=== PATIENT | male | born 1965 | race Caucasian/White ===

== ENCOUNTER 2020-09-26 06:00 | Outpatient (RCR) | payer OTHER, SELFPAY | END 2020-10-05 23:59 | disposition home or self-care (01) | LOC: SPT 06:00 | PROVIDERS: Family Provider Electrodiagnostic Medicine; Referring Provider Neurological Surgery; Visit Provider Neurological Surgery | DX: M48.062 Spinal stenosis, lumbar region with neurogenic claudication (principal) | CPT/HCPCS: 97110; 97162 ==

== ENCOUNTER 2020-10-06 06:00 | Outpatient (RCR) | payer OTHER, SELFPAY | END 2020-11-05 23:59 | disposition home or self-care (01) | LOC: SPT 06:00 | PROVIDERS: Family Provider Electrodiagnostic Medicine; Referring Provider Neurological Surgery; Visit Provider Neurological Surgery | DX: M48.062 Spinal stenosis, lumbar region with neurogenic claudication (principal) | CPT/HCPCS: 97110 ==

== ENCOUNTER 2020-11-06 06:00 | Outpatient (RCR) | payer OTHER, SELFPAY | END 2020-12-03 23:59 | disposition home or self-care (01) | LOC: SPT 06:00 | PROVIDERS: Family Provider Electrodiagnostic Medicine; Referring Provider Neurological Surgery; Visit Provider Neurological Surgery | DX: M48.062 Spinal stenosis, lumbar region with neurogenic claudication (principal) | CPT/HCPCS: 97110 ==

== ENCOUNTER 2023-03-11 20:40 | Emergency (ER) | payer OTHER, SELFPAY ==
[2023-03-11 20:44] VITALS: BP 165/89; PULSE 87; RESP 18; TEMP 36.6; O2SAT 97; BMI 29.5
--- NOTE | 2023-03-11 21:09 | XRR_ITS ---
PROCEDURE INFORMATION: Exam: XR Chest Exam date and time: 03/11/2023 9:31 PM Age: 57 years old Clinical indication: Other: Weakness TECHNIQUE: Imaging protocol: Radiologic exam of the chest. Views: 1 view. COMPARISON: No relevant prior studies available. FINDINGS: Lungs: Right peripheral upper lateral lung zone opacity which may be seen with pneumonia in the appropriate clinical context or possible artifact. Pleural spaces: Unremarkable. No pleural effusion. No pneumothorax. Heart/Mediastinum: No cardiomegaly. Bones/joints: No acute fracture. XR/XR chest 1V portable [id number] IMPRESSION: Right peripheral upper lateral lung zone opacity which may be seen with pneumonia in the appropriate clinical context or possible artifact.
--- NOTE | 2023-03-11 21:10 | ECG_ITS ---
[facility] Test Date: 2023-03-11 Pat Name: Eimly Lopez Department: Room: Gender: Male [employer] Handler: : 1965 Requested By: Clinton Garcia Order Number: [id number] Myles MD: Samuel Mack M.D. Measurements Intervals [place] Rate: 77 P: 56 TX: 156 QRS: -34 QRSD: 101 T: 39 QT: 373 QTc: 423 Interpretive Statements SINUS RHYTHM LEFT AXIS DEVIATION [QRS AXIS < -30] No previous ECG available for comparison Electronically Signed On 03-12-2023 2:53:50 CDT by Samuel Mack M.D. [id number]
--- NOTE | 2023-03-11 21:11 | W.ED.WEAKNES ---
HPI - Weakness General: Chief complaint: Weakness Stated complaint: general weakness, Time Seen by Provider: 03/11/23 21:03 History of Present Illness: Patient presents to the ER with complaints of feeling very weak fatigued and dizzy for the last 3 to 4 days. Patient has been working outside pouring concrete and has not felt good for the last 3 to 4 days. He even did not go to work the last 2 days and stayed home and rested and this did not make much of a difference. Patient says he has been hydrating and having good urine output. MD Complaint: generalized weakness Onset (ago): day(s) (3 to 4 days ago) Duration: constant Location: generalized Migration: none Severity: mild Relieving factors: none Exacerbating factors: none Associated symptoms: Reports no associated symptoms Review of Systems General: Reports: 10 or more systems reviewed and unremarkable except in HPI and below Physical Exam Const: COMMON NORMALS: no acute distress, average body habitus, patient oriented x3, no limitations, healthy appearing, alert and well nourished HENMT: COMMON NORMALS: normocephalic, atraumatic, hearing grossly normal bilaterally, external ears normal, Normal external nose present and moist oral mucous membranes HEAD & SCALP: normocephalic and atraumatic NOSE: Normal external nose present EXTERNAL EAR: Yes external ears normal Eye: COMMON NORMALS: Equal, round and reactive pupils present, EOMs intact bilaterally, conjunctivae normal and no scleral icterus CONJUNCTIVA: Yes conjunctivae normal PUPIL: Yes Equal, round and reactive pupils present Neck/C-Spine: COMMON NORMALS: full ROM, no lymphadenopathy, supple, no meningeal signs, no JVD and Thyroid normal THYROID: Thyroid normal Lymph: LYMPHATIC: no lymphadenopathy noted Chest: COMMONS NORMALS: normal inspection of the chest and normal palpation of entire chest wall Resp: COMMON NORMALS: normal respiratory effort, No retractions, No use of accessory muscles and clear to auscultation bilaterally AUSCULTATION: clear to auscultation bilaterally Cardio: COMMON NORMALS: no JVD, regular rate, regular rhythm, S1 normal heart sound present, S2 normal heart sound present, No gallops present (Cardio), No clicks present (Cardio), No murmurs present (Cardio) and No rub (Cardio) RATE: regular rate RHYTHM: regular rhythm HEART SOUNDS: S1 normal heart sound present and S2 normal heart sound present GI: COMMON NORMALS: Normal to inspection, nondistended, normoactive bowel sounds present, Soft to palpation, non-tender, No hepatosplenomegaly present and no masses PALPATION: Yes Soft to palpation and Yes No hepatosplenomegaly present : COMMON NORMALS: Yes no CVA tenderness BLADDER/KIDNEY EXAM: Yes no CVA tenderness Back/Pelvis: COMMON NORMALS: no CVA tenderness Neuro: COMMON NORMALS: patient oriented x3 SENSORIUM/ORIENTATION: Yes alert MENINGEAL SIGNS: Yes no meningeal signs Course Vital Signs: Vital signs: Vital Signs Temperature 97.9 F 03/11/23 20:44 Pulse Rate 87 03/11/23 23:23 Respiratory Rate 18 03/11/23 23:23 Blood Pressure 157/93 03/11/23 23:23 Pulse Oximetry 94 03/11/23 23:23 MDM - Weakness Medical Decision Making Patient presents to the ER with complaints of 2 to 3-day history of weakness. Patient also complains of head pressure and sinus drainage. Patient does have extensive history of sinusitis with multiple surgeries. Lab work was obtained CBC CMP troponin CK magnesium and UA were all obtained which was benign. Chest x-ray showed right peripheral upper lateral lung opacity which may represent pneumonia. Patient was given 1 L fluid normal saline which did not improve patient's symptoms. These results was the discussed with the patient along with his sinusitis like symptoms and is thought patient will benefit from a round of antibiotics. Patient will be treated with Augmentin 875 for sinusitis/pneumonia and should follow-up with his PCP in approximately 10 to 14 days or as needed. Differential Diagnosis Likely dehydration; Unlikely acute myocardial infarction, anemia, hypoglycemia, hypothyroidism, rhabdomyolysis or sepsis Medical Records I reviewed the patient's medical records. Lab Data I reviewed the patient's lab results. 03/11/23 21:23 03/11/23 21:23 Radiology Impressions Chest X-Ray 03/11/23 21:09 IMPRESSION: Right peripheral upper lateral lung zone opacity which may be seen with pneumonia in the appropriate clinical context or possible artifact. Laboratory Results WBC 7.7 10^3/uL (4.0-10.0) 03/11/23 21:23 RBC 4.79 10^6/uL (4.1-5.3) 03/11/23 21:23 Hgb 14.3 g/dL (11.7-16.6) 03/11/23 21:23 Hct 43.4 % (42.0-52.0) 03/11/23 21: MCV 90.6 fl (80-94) 03/11/23 21:23 MCH 29.9 pg (28.0-34.0) 03/11/23 21: MCHC 32.9 g/dL (30.0-36.0) 03/11/23 21: RDW 12.4 % (12.1-15.1) 03/11/23 21: Plt Count 256 10^3/cmm (130-400) 03/11/23 21: MPV 9.9 fL (7.4-10.4) 03/11/23 21: Neut % (Auto) 52.8 % 03/11/23 21: Lymph % (Auto) 33.1 % 03/11/23 21: [place] % (Auto) 9.2 % 03/11/23 21: Eos % (Auto) 3.8 % 03/11/23 21: Baso % (Auto) 0.5 % 03/11/23 21: Neut # (Auto) 4.06 10^3/uL (1.8-7.7) 03/11/23 21: Lymph # (Auto) 2.6 10^3/uL (0.8-4.8) 03/11/23 21: [place] # (Auto) 0.7 10^3/uL (0.2-0.9) 03/11/23 21:23 Eos # (Auto) 0.3 10^3/uL (0.0-0.8) 03/11/23 21:23 Baso # (Auto) 0.0 10^3/uL (0.0-0.1) 03/11/23: Nucleated RBC % (auto) 0 % 03/11/23: Nucleated RBCs # 0.0 /100WBC 03/11/23 21: Sodium 139 mmol/L (136-145) 03/11/23 21:23 Potassium 4.1 mmol/L (3.5-5.1) 03/11/23 21: Chloride 103 mmol/L (98-107) 03/11/23 21:23 Carbon Dioxide 25 mmol/L (22-29) 03/11/23 21: Anion Gap 15.1 (5-19) 03/11/23 21: BUN 10 mg/dL (6-20) 03/11/23 21: Creatinine 0.9 mg/dL (0.7-1.2) 03/11/23 21: GFR Calculation 87.3 mL/min (90-130) L 03/11/23 21: Glucose 94 mg/dL (65-115) 03/11/23 21: Calculated Osmolality 287 mOsm/kg (285-295) 03/11/23 21: Calcium 9.4 mg/dL (8.5-10.5) 03/11/23: Magnesium 2.2 mg/dL (1.7-2.3) 03/11/23: Total Bilirubin 0.2 mg/dL (0.15-1.2) 03/11/23 21: AST 16 U/L (0-40) 03/11/23 21: ALT 27 U/L (0-41) 03/11/23 21: Alkaline Phosphatase 93 U/L (40-130) 03/11/23 21: Creatine Kinase 94 U/L (39-308) 03/11/23 21: Troponin T Gen 5 ng/L 8 ng/L (0-15) 03/11/23 21: Total Protein 7.2 g/dL (6.6-8.7) 03/11/23 21: Albumin 4.3 g/dL (3.5-5.2) 03/11/23 21: Globulin 2.9 g/dL (1.3-4.6) 03/11/23 21: Urine Color Light yellow (Yellow) 03/11/23 21:35 Urine Appearance Clear (CLEAR) 03/11/23 21:35 Urine pH 5 (5-7) 03/11/23 21:35 Ur Specific [place] 1.020 (1.005-1.030) 03/11/23 21:35 Urine Protein Neg (Negative) 03/11/23 21:35 Urine Glucose (UA) Norm (Normal) 03/11/23 21:35 Urine Ketones Negative (Negative) 03/11/23 21:35 Urine Blood Neg (Negative) 03/11/23 21:35 Urine Nitrate Negative (Negative) 03/11/23 21:35 Urine Bilirubin Neg (Negative) 03/11/23 21:35 Urine Urobilinogen Neg mg/dL (Negative) 03/11/23 21:35 Ur Leukocyte Esterase Negative (Negative) 03/11/23 21:35 EKG Data EKG 1: I personally reviewed and interpreted this EKG as follows: EKG interpretation date: 03/11/23 EKG interpretation time: 21:16 Prior EKG tracings: not available for review Interpretation: EKG showed normal sinus rhythm with a ventricular rate of 77 bpm, ID interval 156, QRS duration 101, QTc 405, left axis deviation no ST-T wave changes Discharge Plan Discharge Patient Disposition: Home Clinical Impression: Weakness, Sinusitis chronic, frontal Pneumonia Qualifiers: Pneumonia type: due to unspecified organism Laterality: right Lung location: middle lobe of lung Qualified Code(s): J18.9 - Pneumonia, unspecified organism Condition: Stable Prescriptions: New amoxicillin-pot clavulanate 875-125 mg tablet 1 tab PO Q12H Qty: 20 0RF Discharge Orders: Discharge ED (Routine); Ordered 03/11/23 Ordered By: Clinton Garcia Referrals: Pelon Davies MD [Primary Care Provider] - Patient Instructions: Bacterial Pneumonia (ED), Sinusitis - Acute, Weakness (Generalized) Activity Restrictions/Additional Instructions: Take all antibiotics as directed, continue to rest, follow-up with your family practice physician in the next 10 to 14 days as needed. If your symptoms worsen or progress please feel free to follow back up in the ER as needed. Coding Level of Care Code ED Hospice Rn for Melanie Burrows
[2023-03-11] MEDS: sodium chloride 0.9% 1,000 ML 999 ML IV (21:18)
[2023-03-11 21:29] LABS: Basophils % 0.5 %; Eosinophils # 0.3 10^3/uL (0.0-0.8); Eosinophils % 3.8 %; Hematocrit 43.4 % (42.0-52.0); Hemoglobin 14.3 g/dL (11.7-16.6); Lymphocytes # 2.6 10^3/uL (0.8-4.8); Lymphocytes % 33.1 %; Mean Corpuscular HGB Conc 32.9 g/dL (30.0-36.0); Mean Corpuscular Hemoglobin 29.9 pg (28.0-34.0); Mean Corpuscular Volume 90.6 fl (80-94); Mean Platelet Volume 9.9 fL (7.4-10.4); Monocytes # 0.7 10^3/uL (0.2-0.9); Monocytes % 9.2 %; Neutrophils # 4.06 10^3/uL (1.8-7.7); Neutrophils % 52.8 %; Nucleated Red Blood Cells % 0 %; Platelet Count 256 10^3/cmm (130-400); Red Blood Count 4.79 10^6/uL (4.1-5.3); Red Cell Distribution Width 12.4 % (12.1-15.1); White Blood Count 7.7 10^3/uL (4.0-10.0)
[2023-03-11 21:38] LABS: Add Urine Microscopic? NO; Charge for UA Resulting for Rev
[2023-03-11 21:48] LABS: Bilirubin Urine Neg (Negative); Blood Urine Neg (Negative); Glucose Urine UA Norm (Normal); Ketones Urine Negative (Negative); Leukocyte Esterase Urine Negative (Negative); Nitrate Urine Negative (Negative); Protein Urine Neg (Negative); Urine Appearance Clear (CLEAR); Urine Color Light yellow (Yellow); Urobilinogen Urine Neg (Negative); pH Urine 5 (5-7)
[2023-03-11 21:59] LABS: Alanine Aminotransferase 27 U/L (0-41); Albumin Level 4.3 g/dL (3.5-5.2); Alkaline Phosphatase 93 U/L (40-130); Aspartate Amino Transferase 16 U/L (0-40); Blood Urea Nitrogen 10 mg/dL (6-20); Calcium 9.4 mg/dL (8.5-10.5); Carbon Dioxide 25 mmol/L (22-29); Globulin 2.9 g/dL (1.3-4.6); Glomerular Filtration Rate 87.3 mL/min (90-130); Glucose 94 mg/dL (65-115); Magnesium 2.2 mg/dL (1.7-2.3); Total Bilirubin 0.2 mg/dL (0.15-1.2); Total Protein 7.2 g/dL (6.6-8.7)
[2023-03-11 22:05] LABS: Anion Gap 15.1 (5-19); Chloride 103 mmol/L (98-107); Osmolality Calculated 287 mOsm/kg (285-295); Potassium 4.1 mmol/L (3.5-5.1); Sodium 139 mmol/L (136-145)
[2023-03-11 22:35] LABS: Troponin T (5th) Once 8 ng/L (0-15)
[2023-03-11 22:36] LABS: Creatine Phosphokinase 94 U/L (39-308)
[2023-03-11] MEDS: amoxicillin-clav 875-125 mg Tablet 1 TAB PO (23:21)
[2023-03-11 23:23] VITALS: BP 157/93; PULSE 87; RESP 18; O2SAT 94
== END 2023-03-11 23:28 | disposition home or self-care (01) ==
PROVIDERS: Emergency Provider Emergency Medicine; PCP Internal Medicine
DX: R53.1 Weakness (principal); J32.1 Chronic frontal sinusitis
CPT/HCPCS: 71045; 80053; 81003; 82550; 83735; 84484; 85025; 93005; 96360; 99284; J7030

== ENCOUNTER 2024-03-31 00:50 | Emergency (ER) | payer BC, SELFPAY ==
[2024-03-31 01:18] VITALS: BP 130/89; PULSE 78; RESP 18; TEMP 36.7; O2SAT 96; BMI 29.5
--- NOTE | 2024-03-31 01:35 | CTR_ITS ---
PROCEDURE INFORMATION: Exam: CT Head Without Contrast Exam date and time: 03/31/2024 1:47 AM Age: 58 years old Clinical indication: Injury or trauma; Fall; Additional info: Fall, positive loc, head trauma and lac post sup occiput TECHNIQUE: Imaging protocol: Computed tomography of the head without contrast. Radiation optimization: All CT scans at this facility use at least one of these dose optimization techniques: automated exposure control; mA and/or kV adjustment per patient size (includes targeted exams where dose is matched to clinical indication); or iterative reconstruction. COMPARISON: No relevant prior studies available. RADIATION DOSE METRICS: Total DLP (mGy-cm): 4185.7 FINDINGS: Brain: Jovani cisterna magna which is a normal variant. Cerebral ventricles: No ventriculomegaly. Paranasal sinuses: Severe bilateral ethmoid sinus disease. Mild bilateral frontal sinusitis. Mastoid air cells: Visualized mastoid air cells are well aerated. Bones: Unremarkable. No acute fracture. Soft tissues: Unremarkable. CT/CT head wo con* [id number] IMPRESSION: 1. Severe bilateral ethmoid sinus disease. 2. Mild bilateral frontal sinusitis. 3. No acute intracranial findings.
--- NOTE | 2024-03-31 01:40 | ED_ITS ---
HPI - Head Injury General: Chief complaint: Head Injury Stated complaint: Head Pain Time Seen by Provider: 03/31/24 01:31 History of Present Illness: Patient can appease the bathroom and once he was done he spun around to leave and exiting and no he was picking himself up off the ground. He does not remember falling. Patient hit his head on something and got laceration to the top posterior part of his head. Patient has no hearing, vision changes no nausea vomiting. Patient feels otherwise fine. Patient's only on a baby aspirin and no other anticoagulation. Review of Systems General: Reports: 10 or more systems reviewed and unremarkable except in HPI and below Physical Exam Const: COMMON NORMALS: no acute distress, average body habitus, patient oriented x3, no limitations, healthy appearing, alert and well nourished HENMT: COMMON NORMALS: normocephalic, hearing grossly normal bilaterally, external ears normal, Normal external nose present and moist oral mucous membranes; head/scalp not atraumatic (Laceration posterior superior occipital region) HEAD & SCALP: normocephalic; not atraumatic (Laceration posterior superior occipital region) NOSE: Normal external nose present EXTERNAL EAR: Yes external ears normal Eye: COMMON NORMALS: Equal, round and reactive pupils present, EOMs intact bilaterally, conjunctivae normal and no scleral icterus CONJUNCTIVA: Yes conjunctivae normal PUPIL: Yes Equal, round and reactive pupils present Neck/C-Spine: COMMON NORMALS: full ROM, no lymphadenopathy, supple, no meningeal signs, no JVD and Thyroid normal THYROID: Thyroid normal Chest: COMMONS NORMALS: normal inspection of the chest and normal palpation of entire chest wall Resp: COMMON NORMALS: normal respiratory effort, No retractions, No use of accessory muscles and clear to auscultation bilaterally AUSCULTATION: clear to auscultation bilaterally Cardio: COMMON NORMALS: no JVD, regular rate, regular rhythm, S1 normal heart sound present, S2 normal heart sound present, No gallops present (Cardio), No clicks present (Cardio), No murmurs present (Cardio) and No rub (Cardio) RATE: regular rate RHYTHM: regular rhythm HEART SOUNDS: S1 normal heart sound present and S2 normal heart sound present GI: COMMON NORMALS: Normal to inspection, nondistended, normoactive bowel sounds present, Soft to palpation, non-tender, No hepatosplenomegaly present and no masses PALPATION: Yes Soft to palpation and Yes No hepatosplenomegaly present Neuro: COMMON NORMALS: patient oriented x3 SENSORIUM/ORIENTATION: Yes alert MENINGEAL SIGNS: Yes no meningeal signs Course Vital Signs: Vital signs: Vital Signs Temperature 98.0 F 03/31/24 01:18 Pulse Rate 78 03/31/24 01:18 Respiratory Rate 18 03/31/24 01:18 Blood Pressure 130/89 03/31/24 01:18 Pulse Oximetry 96 03/31/24 01:18 Oxygen Delivery Me thod Room Air 03/31/24 01:18 MDM - Head Injury Medcial Decision Making Wound was cleaned, is more of abrasion type laceration it would not spread. Will be dressed appropriately. Head CT was read off as negative for acute intracranial findings. These results were discussed with the patient patient be discharged home. Differential Diagnosis Likely closed head injury; Unlikely concussion without loss of consciousness, epidural hematoma, subarachnoid hematoma, postconcussion syndrome, subdural hematoma or concussion with loss of consciousness Medical Records I reviewed the patient's medical records. Lab Data I reviewed the patient's lab results. Radiology Impressions Head CT 03/31/24 01:35 IMPRESSION: 1. Severe bilateral ethmoid sinus disease. 2. Mild bilateral frontal sinusitis. 3. No acute intracranial findings. All radiology interpretation(s) finalized by discharge Discharge Plan Discharge Patient Disposition: Home Clinical Impression: Fall, Laceration of head Condition: Stable Prescriptions: No Action amoxicillin-pot clavulanate 875-125 mg tablet 1 tab PO Q12H Qty: 20 0RF Discharge Orders: Discharge ED (Routine); Ordered 03/31/24 Ordered By: Clinton Garcia Referrals: Pelon Davies MD [Primary Care Provider] - 1 week Patient Instructions: Scalp Laceration Activity Restrictions/Additional Instructions: Laceration your scalp is more of an abrasion type laceration, it does not need stitches or pamella. Please keep it clean and dry and will heal up nicely on its own. Your head CT was read by the radiologist as negative for any internal bleeding or fracture. Please follow-up with your family practitioner in the next 7 to 10 days for further evaluation and treatment as needed. Coding Level of Care Code ED Education Teacher for Melanie Burrows
== END 2024-03-31 02:40 | disposition home or self-care (01) ==
PROVIDERS: Emergency Provider Emergency Medicine; PCP Internal Medicine
DX: S01.01XA Laceration without foreign body of scalp, initial encounter (principal); W18.39XA Other fall on same level, initial encounter
CPT/HCPCS: 70450; 99284

== ENCOUNTER 2024-07-11 18:38 | Emergency (ER) | payer BC, SELFPAY ==
[2024-07-11 18:45] VITALS: BP 149/88; PULSE 93; RESP 18; TEMP 36.7; O2SAT 100
--- NOTE | 2024-07-11 18:47 | CTR_ITS ---
PROCEDURE INFORMATION: Exam: CT Abdomen And Pelvis With Contrast Exam date and time: 07/11/2024 7:34 PM Age: 59 years old Clinical indication: Injury or trauma; Fall; Blunt; Abdominal wall; Prior surgery; Surgery date: 6+ months; Surgery type: Appy; Patient HX: Patient tripped and fell backwards against a wood splitter. Patient has large contusion to left lower flank. ; Additional info: Trauma, left hip and flank pain. TECHNIQUE: Imaging protocol: Computed tomography of the abdomen and pelvis with contrast. Radiation optimization: All CT scans at this facility use at least one of these dose optimization techniques: automated exposure control; mA and/or kV adjustment per patient size (includes targeted exams where dose is matched to clinical indication); or iterative reconstruction. Contrast material: OMNI 350; Contrast volume: 100 ml; Contrast route: INTRAVENOUS (IV); COMPARISON: CR (CHEST, ) 03/11/2023 9:31 PM RADIATION DOSE METRICS: Total DLP (mGy-cm): 920.44 FINDINGS: Liver: The liver is enlarged, measuring 20 cm craniocaudal. Gallbladder and biliary ducts: Normal. No calcified stones. No ductal dilation. Pancreas: Fatty atrophy of the body and tail of the pancreas. No ductal dilatation. Spleen: Normal. No splenomegaly. Adrenal glands: Normal. No mass. Kidneys and ureters: Excreted contrast within the renal collecting systems and ureters. 2 cm simple cyst in the lower pole of the left kidney. No hydronephrosis. Stomach and bowel: Unremarkable. No obstruction. No mucosal thickening. Appendix: The appendix appears to be surgically absent. Intraperitoneal space: Unremarkable. No free air. No significant fluid collection. Vasculature: Mild atherosclerotic aortic calcifications. No aortic aneurysm. Lymph nodes: Unremarkable. No enlarged lymph nodes. Urinary bladder: Unremarkable as visualized. Reproductive: Unremarkable as visualized. Bones/joints: Moderate degenerative disc disease at L4-L5 and L5-S1. Soft tissues: Hematoma in the left posterior subcutaneous soft tissues measuring approximately 6.6 x 4.5 x 7.9 cm with surrounding soft tissue contusion. No definite evidence of active bleeding, though assessment is limited on this single phase of contrast. CT/CT abdomen pelvis w con* [id number] IMPRESSION: 1. Left posterior subcutaneous soft tissue hematoma with surrounding contusion. 2. No definite acute osseous findings in the abdomen/pelvis. 3. No evidence of acute traumatic injury to the abdominal viscera. COMMENTS: Consistent with the [employer] [employer]'s Incidental Findings Committee white paper (J Am Seth Radiol 2018): Any incidental renal lesion less than 1 cm or classified as too small to characterize, or any incidental cystic renal lesion characterized as simple-appearing, is likely benign. No follow-up imaging is recommended for these lesions per consensus recommendations based on imaging criteria.
--- NOTE | 2024-07-11 18:55 | ED_ITS ---
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 He continued to work for about 4 hours and by the time he got home the pain was so bad he can barely walk. He had a near syncopal episode. He did hit his head when he fell and had a small abrasion but no loss of consciousness. No blood thinners. No nausea or vomiting. No altered mental status. No chest pain. He has a large contusion/bruise over his left upper hip area posteriorly. Related Data Previous Rx's Medication Instructions Recorded amoxicillin 875 mg-potassium 1 tab PO Q12H #20 tabs 03/11/23 clavulanate 125 mg tablet Allergies Allergy/AdvReac Type Severity Reaction Status Date / Time No Known Allergies Allergy Verified 03/31/24 01:21 Review of Systems 2 Narrative: Constitutional symptoms: Negative except as documented in HPI. Skin symptoms: Negative except as documented in HPI. Eye symptoms: Negative except as documented in HPI. ENMT symptoms: Negative except as documented in HPI. Respiratory symptoms: Negative except as documented in HPI. Cardiovascular symptoms: Negative except as documented in HPI. Gastrointestinal symptoms: Negative except as documented in HPI. Genitourinary symptoms: Negative except as documented in HPI. Musculoskeletal symptoms: Negative except as documented in HPI. Neurologic symptoms: Negative except as documented in HPI. Psychiatric symptoms: Negative except as documented in HPI. Endocrine symptoms: Negative except as documented in HPI. Physical Exam 2 Narrative: EXAM NARRATIVE: General: Alert, no acute distress. Skin: Warm, dry. Head: Normocephalic, atraumatic. Neck: Supple, trachea midline. Eye: Extraocular movements are intact. Ears, nose, mouth and throat: mucosa moist. Cardiovascular: Regular, Normal peripheral perfusion. Respiratory: Lungs are clear to auscultation, respirations are non-labored, breath sounds are equal, Symmetrical chest wall expansion. Gastrointestinal: Soft, Nontender, Non distended Musculoskeletal: Normal ROM, no deformity. There is a large tender hematoma over the left upper posterior hip area. Neurological: Alert and oriented, No focal neurological deficit observed. Psychiatric: Cooperative, appropriate mood & affect. Course 2 Vital Signs: Vital signs: Vital Signs Temperature 98.1 F 07/11/24 18:45 Pulse Rate 74 07/11/24 20:59 Respiratory Rate 16 07/11/24 20:59 Blood Pressure 141/87 07/11/24 20:59 Pulse Oximetry 98 07/11/24 20:59 Oxygen Delivery Me thod Room Air 07/11/24 20:59 MDM - Back Pain/Injury Medical Decision Making CT of the abdomen pelvis: There is a large hematoma over the left upper pelvic area. No obvious bony deformities. This was reviewed and interpreted by myself the emergency room physician. I also reviewed the radiology report. Lab review: I reviewed and interpreted lab work personally. Mild leukocytosis. No anemia. BUN and creatinine are 22 and 1.1. Glucose is slightly elevated at 155. Assessment and plan: Fall Flank hematoma - Discharged home - Discussed plan with patient. Answered any questions. - Evaluation and treatment of this problem were appropriate in the emergency setting. Labs 07/11/24 18:30 07/11/24 18:30 Radiology Impressions Abdomen/Pelvis CT 07/11/24 18:47 IMPRESSION: 1. Left posterior subcutaneous soft tissue hematoma with surrounding contusion. 2. No definite acute osseous findings in the abdomen/pelvis. 3. No evidence of acute traumatic injury to the abdominal viscera. COMMENTS: Consistent with the [employer]'s Incidental Findings Committee white paper (J Am Seth Radiol 2018): Any incidental renal lesion less than 1 cm or classified as too small to characterize, or any incidental cystic renal lesion characterized as simple-appearing, is likely benign. No follow-up imaging is recommended for these lesions per consensus recommendations based on imaging criteria. Laboratory Results WBC 17.65 10^3/uL (3.29-11.43) H 07/11/24 18:30 RBC 4.83 10^6/uL (3.85-5.65) 07/11/24 18:30 Hgb 14.30 g/dL (11.27-16.99) 07/11/24 18:30 Hct 43.1 % (37-53) 07/11/24 18:30 MCV 89.2 fl (82-101) 07/11/24 18:30 MCH 29.6 pg (27-33) 07/11/24 18:30 MCHC 33.2 g/dL (30-55) 07/11/24 18:30 RDW 12.2 % (12.1-15.1) 07/11/24 18:30 Plt Count 319 10^3/cmm (157-399) 07/11/24 18:30 MPV 10.4 fL (7.4-10.4) 07/11/24 18:30 Neut % (Auto) 74.6 % 07/11/24 18:30 Lymph % (Auto) 15.6 % 07/11/24 18:30 Antelope % (Auto) 7.0 % 07/11/24 18:30 Eos % (Auto) 1.6 % 07/11/24 18:30 Baso % (Auto) 0.5 % 07/11/24 18: Neut # (Auto) 13.19 10^3/uL (1.8-7.7) H 07/11/24 18:30 Lymph # (Auto) 2.8 10^3/uL (0.8-4.8) 07/11/24 18:30 Antelope # (Auto) 1.2 10^3/uL (0.2-0.9) H 07/11/24 18:30 Eos # (Auto) 0.3 10^3/uL (0.0-0.8) 07/11/24 18:30 Baso # (Auto) 0.1 10^3/uL (0.0-0.1) 07/11/24 18:30 Nucleated RBC % (auto) 0 % 07/11/24 18: Nucleated RBCs # 0.0 /100WBC 07/11/24 18:30 Sodium 133 mmol/L (136-145) L 07/11/24 18:30 Potassium 3.5 mmol/L (3.5-5.1) 07/11/24 18:30 Chloride 97 mmol/L (98-107) L 07/11/24 18:30 Carbon Dioxide 24 mmol/L (22-29) 07/11/24 18:30 Anion Gap 15.5 (5-19) 07/11/24 18:30 BUN 22 mg/dL (6-20) H 07/11/24 18:30 Creatinine 1.1 mg/dL (0.7-1.2) 07/11/24 18:30 GFR Calculation 68.8 mL/min (90-130) L 07/11/24 18:30 Glucose 155 mg/dL (65-115) H 07/11/24 18:30 Calculated Osmolality 282 mOsm/kg (285-295) L 07/11/24 18:30 Calcium 9.1 mg/dL (8.5-10.5) 07/11/24 18:30 Total Bilirubin 0.4 mg/dL (0.15-1.2) 07/11/24 18:30 AST 21 U/L (0-40) 07/11/24 18:30 ALT 26 U/L (0-41) 07/11/24 18:30 Alkaline Phosphatase 107 U/L (40-130) 07/11/24 18:30 Total Protein 8.0 g/dL (6.6-8.7) 07/11/24 18:30 Albumin 4.6 g/dL (3.5-5.2) 07/11/24 18:30 Globulin 3.4 g/dL (1.3-4.6) 07/11/24 18:30 All radiology interpretation(s) finalized by discharge Discharge Plan Discharge Patient Disposition: Home Clinical Impression: Hematoma of left flank Condition: Stable Prescriptions: No Action amoxicillin-pot clavulanate 875-125 mg tablet 1 tab PO Q12H Qty: 20 0RF Discharge Orders: Discharge ED (Routine); Ordered 07/11/24 Ordered By: Mary Layne Referrals: Pelon Davies MD [Primary Care Provider] - Discharge Diet: Usual diet Discharge Activity: Increase activity as tolerated Patient Instructions: Hematoma (ED) Activity Restrictions/Additional Instructions: Thank you for choosing [facility] for your healthcare needs today. Please realize this is an emergency room and that we are providing you with a medical screening exam and this may not be complete and all inclusive of all the testing and or work up that you may need to determine your ailment or severity of your illness. You have been screened and evaluated and felt safe for discharge. Health conditions do change or evolve sometimes and as such it is important that you follow up with your Primary Doctor to be re checked, 3-5 days is a general good time frame for follow up. You are always welcome to return to the ED for re assessment if your symptoms are worsening or you have new concerns Coding Level of Care Code ED Big Machine Consultant for Melanie Burrows
[2024-07-11 19:06] LABS: Basophils # 0.1 10^3/uL (0.0-0.1); Basophils % 0.5 %; Eosinophils # 0.3 10^3/uL (0.0-0.8); Eosinophils % 1.6 %; Hematocrit 43.1 % (37-53); Lymphocytes # 2.8 10^3/uL (0.8-4.8); Lymphocytes % 15.6 %; Mean Corpuscular HGB Conc 33.2 g/dL (30-55); Mean Corpuscular Hemoglobin 29.6 pg (27-33); Mean Corpuscular Volume 89.2 fl (82-101); Mean Platelet Volume 10.4 fL (7.4-10.4); Monocytes # 1.2 10^3/uL (0.2-0.9); Neutrophils # 13.19 10^3/uL (1.8-7.7); Neutrophils % 74.6 %; Nucleated Red Blood Cells % 0 %; Platelet Count 319 10^3/cmm (157-399); Red Blood Count 4.83 10^6/uL (3.85-5.65); Red Cell Distribution Width 12.2 % (12.1-15.1); White Blood Count 17.65 10^3/uL (3.29-11.43)
[2024-07-11 19:26] LABS: Alanine Aminotransferase 26 U/L (0-41); Albumin Level 4.6 g/dL (3.5-5.2); Alkaline Phosphatase 107 U/L (40-130); Anion Gap 15.5 (5-19); Aspartate Amino Transferase 21 U/L (0-40); Blood Urea Nitrogen 22 mg/dL (6-20); Calcium 9.1 mg/dL (8.5-10.5); Carbon Dioxide 24 mmol/L (22-29); Chloride 97 mmol/L (98-107); Globulin 3.4 g/dL (1.3-4.6); Glomerular Filtration Rate 68.8 mL/min (90-130); Glucose 155 mg/dL (65-115); Osmolality Calculated 282 mOsm/kg (285-295); Potassium 3.5 mmol/L (3.5-5.1); Sodium 133 mmol/L (136-145); Total Bilirubin 0.4 mg/dL (0.15-1.2)
[2024-07-11] MEDS: iohexol 350 mg/mL 500 mL Btl (per mL) IV (19:36)
[2024-07-11 20:25] VITALS: BP 165/82; PULSE 78; RESP 18; O2SAT 97
--- NOTE | 2024-07-11 20:50 | PC.NURSE ---
this nurse assumed pt care at 2044.
[2024-07-11 20:59] VITALS: BP 141/87; PULSE 74; RESP 16; O2SAT 98
[2024-07-11 22:21] VITALS: BP 152/96; PULSE 71; RESP 16; O2SAT 96
== END 2024-07-11 22:30 | disposition home or self-care (01) ==
PROVIDERS: Emergency Provider Emergency Medicine; PCP Internal Medicine
DX: S30.1XXA Contusion of abdominal wall, initial encounter (principal); W01.0XXA Fall on same level from slipping, tripping and stumbling without subsequent striking against object, initial encounter
CPT/HCPCS: 74177; 80053; 85025; 99285

== ENCOUNTER 2024-07-13 18:27 | Emergency (ER) | payer BC, SELFPAY ==
[2024-07-13 18:59] VITALS: BP 151/65; PULSE 80; RESP 16; TEMP 36.7; O2SAT 97; BMI 29.5
--- NOTE | 2024-07-13 19:07 | CTR_ITS ---
PROCEDURE INFORMATION: Exam: CT Head Without Contrast Exam date and time: 07/13/2024 9:20 PM Age: 59 years old Clinical indication: Injury or trauma; Fall; Blunt trauma (contusions or hematomas); Consciousness not specified; Additional info: Head injury, vision changes TECHNIQUE: Imaging protocol: Computed tomography of the head without contrast. Radiation optimization: All CT scans at this facility use at least one of these dose optimization techniques: automated exposure control; mA and/or kV adjustment per patient size (includes targeted exams where dose is matched to clinical indication); or iterative reconstruction. COMPARISON: CT head wo con* [id number] 03/31/2024 1:47 AM RADIATION DOSE METRICS: Total DLP (mGy-cm): 1122.88 FINDINGS: Brain: Normal. No hemorrhage. Unremarkable white matter. No mass effect. Cerebral ventricles: No ventriculomegaly. Paranasal sinuses: Paranasal sinus opacifications. Mastoid air cells: Visualized mastoid air cells are well aerated. Bones: Unremarkable. No acute fracture. Soft tissues: Unremarkable. CT/CT head wo con* [id number] IMPRESSION: No acute intracranial abnormality.
[2024-07-13 20:55] VITALS: BP 154/85; PULSE 82; O2SAT 94
--- NOTE | 2024-07-13 20:57 | W.ED.EYEPROB ---
HPI - Eye Problem General: Chief complaint: Eye Problems Stated complaint: eye issues Time Seen by Provider: 07/13/24 18:35 History of Present Illness: 59-year-old man who presents the emergency room with vision changes. I saw him in the emergency room over the weekend after he had a fall and had a large bruise/hematoma on his left back and flank area. He had hit his head. We discussed doing a CT but the head injury was fairly remote and he had had no neurologic symptoms at that time. However the last couple days he has noticed episodes of double vision. Most notably whenever he tries to look down. He was having trouble walking down the stairs. He said he had to close his eyes to walk down the stairs. He talked with Dr. Alanis who thinks this is likely a 4th nerve palsy. However given his trauma seems prudent to have a CT scan done today. No other neurological signs. Still with some pain in his hip area and large bruise. Related Data Previous Rx's Medication Instructions Recorded amoxicillin 875 mg-potassium 1 tab PO Q12H #20 tabs 03/11/23 clavulanate 125 mg tablet Allergies Allergy/AdvReac Type Severity Reaction Status Date / Time No Known Allergies Allergy Verified 03/31/24 01:21 Review of Systems Narrative: Constitutional symptoms: Negative except as documented in HPI. Skin symptoms: Negative except as documented in HPI. Eye symptoms: Negative except as documented in HPI. ENMT symptoms: Negative except as documented in HPI. Respiratory symptoms: Negative except as documented in HPI. Cardiovascular symptoms: Negative except as documented in HPI. Gastrointestinal symptoms: Negative except as documented in HPI. Genitourinary symptoms: Negative except as documented in HPI. Musculoskeletal symptoms: Negative except as documented in HPI. Neurologic symptoms: Negative except as documented in HPI. Psychiatric symptoms: Negative except as documented in HPI. Endocrine symptoms: Negative except as documented in HPI. Physical Exam Narrative: EXAM NARRATIVE: General: Alert, no acute distress. Skin: warm and dry Head: Normocephalic Neck: Trachea midline Eye: Extraocular movements are intact. Vision is grossly normal. No obvious malalignment of the eyes. Retina appears intact. Ears, nose, mouth and throat: Oral mucosa moist Respiratory: Respirations are non-labored Musculoskeletal: Normal ROM Neurological: Alert and oriented, No focal neurological deficit observed. Psychiatric: Cooperative, appropriate mood & affect. Course Vital Signs: Vital signs: Vital Signs Temperature 98.1 F 07/13/24 18:59 Pulse Rate 75 07/13/24 22:04 Respiratory Rate 18 07/13/24 22:04 Blood Pressure 150/97 07/13/24 22:04 Pulse Oximetry 97 07/13/24 22:04 Oxygen Delivery Me thod Room Air 07/13/24 18:59 MDM - Eye Problem Medical Decision Making CT head: No acute intracranial process. no intracranial hemorrhage, no evidence of infarct. no evidence of acute fracture.This was reviewed and interpreted by myself the ER physician. Consultation: I spoke with Dr. Alanis with ophthalmology. He will see the patient tomorrow at 7:55 AM clinic. This seems most likely to be a 4th nerve palsy. Assessment and plan: - Discharged home - Discussed plan with patient. Answered any questions. - Evaluation and treatment of this problem were appropriate in the emergency setting. Lab Data Radiology Impressions Head CT 07/13/24 19:07 IMPRESSION: No acute intracranial abnormality. All radiology interpretation(s) finalized by discharge Discharge Plan Discharge Patient Disposition: Home Clinical Impression: Fourth nerve palsy, Double vision Condition: Stable Prescriptions: No Action amoxicillin-pot clavulanate 875-125 mg tablet 1 tab PO Q12H Qty: 20 0RF Discharge Orders: Discharge ED (Routine); Ordered 07/13/24 Ordered By: Mary Layne Referrals: Pelon Davies MD [Primary Care Provider] - Rahul Alanis [Physician] - 07/14/24 7:55 am Discharge Diet: Usual diet Discharge Activity: Increase activity as tolerated Patient Instructions: Diplopia (ED) Activity Restrictions/Additional Instructions: Thank you for choosing [facility] for your healthcare needs today. Please realize this is an emergency room and that we are providing you with a medical screening exam and this may not be complete and all inclusive of all the testing and or work up that you may need to determine your ailment or severity of your illness. You have been screened and evaluated and felt safe for discharge. Health conditions do change or evolve sometimes and as such it is important that you follow up with your Primary Doctor to be re checked, 3-5 days is a general good time frame for follow up. You are always welcome to return to the ED for re assessment if your symptoms are worsening or you have new concerns Coding Level of Care Code ED Sharepoint Web Developer for Chg Fwd
[2024-07-13] MEDS: HYDROcodone-acetaminophen 5-325 mg Tablet 1 TAB PO (21:56)
[2024-07-13 22:04] VITALS: BP 150/97; PULSE 75; RESP 18; O2SAT 97
== END 2024-07-13 22:06 | disposition home or self-care (01) ==
PROVIDERS: Emergency Provider Emergency Medicine; PCP Internal Medicine
DX: H53.2 Diplopia (principal); H49.10 Fourth [trochlear] nerve palsy, unspecified eye
CPT/HCPCS: 70450; 99284

== ENCOUNTER 2025-03-09 07:35 | Outpatient (RCR) | payer BC, SELFPAY | END 2025-04-04 23:59 | disposition home or self-care (01) | LOC: SPT 07:35 | PROVIDERS: Visit Provider Physician Assistant Medical | DX: M25.561 Pain in right knee (principal); M48.062 Spinal stenosis, lumbar region with neurogenic claudication; G89.29 Other chronic pain | CPT/HCPCS: 97110; 97162 ==

== ENCOUNTER 2025-04-05 05:00 | Outpatient (RCR) | payer BC, SELFPAY | END 2025-05-05 23:59 | disposition home or self-care (01) | LOC: SPT 05:00 | PROVIDERS: Visit Provider Physician Assistant Medical | DX: M48.062 Spinal stenosis, lumbar region with neurogenic claudication (principal); M25.561 Pain in right knee; G89.29 Other chronic pain | CPT/HCPCS: 97110 ==

== ENCOUNTER → 2025-08-18 08:44 | Outpatient (BNVA) | payer BC, SELFPAY | PROVIDERS: PCP Family Medicine; Visit Provider Family Medicine | DX: Z00.00 Encounter for general adult medical examination without abnormal findings (principal); Z12.5 Encounter for screening for malignant neoplasm of prostate; E03.9 Hypothyroidism, unspecified | CPT/HCPCS: 80053; 80061; 82607; 84443; 85025; G0103 ==